=== PATIENT | male | born 1980 | race Caucasian/White ===

== ENCOUNTER 2023-03-15 08:48 | Inpatient (IN) | payer MEDICARE, MEDICAID ==
[~2023-03-15] VITALS: Ht 172.7 cm; Wt 47.6 kg
[~2023-03-15 08:48] MED LIST: APIX5TAB MT; ASCO500C18 MT; CHOL500010; DOCU50LI25 PO; FERR325T6 MT; GABA-529 PO; METH-773 MT; MOM MT; TRAM50TA3 PO; ZINC220C2 MT
[2023-03-15 10:22] LABS: BASOPHILS % 0.5 % (0.0-2.0); HEMATOCRIT. 44.6 % (42.0-52.0); HEMOGLOBIN. 14.7 g/dL (14.0-18.0); LYMPHOCYTES % 21.3 % (20.0-50.0); MEAN CORPUSCULAR HEMOGLOBIN 29.9 pg (28.0-32.0); MEAN CORPUSCULAR HGB CONC 32.9 g/dL (31.0-37.0); MEAN CORPUSCULAR VOLUME 90.8 fL (80.0-94.0); MEAN PLATELET VOLUME 9.5 fl (7.4-10.4); MONOCYTES % 8.2 % (2.0-8.0); PLATELET 201 x1000/uL (130-400); RED BLOOD CELL COUNT 4.91 mill/uL (4.7-6.1); RED CELL DISTRIBUTION WIDTH 15.7 % (11.6-14.6); WHITE BLOOD COUNT 4.6 x1000/uL (4.5-11.0)
[2023-03-15 10:37] LABS: CHLORIDE 99 mEq/L (98-107); INDEX HEMOLYSI 1 (1-3); INDEX ICTERIC 1 (1-4); INDEX LIPEMIC 1 (1-3); POTASSIUM 3.7 mEq/L (3.5-5.1); SODIUM 136 mEq/L (136-145)
[2023-03-15 10:48] LABS: ALANINE AMINOTRANSFERASE 34 IU/L (13-61); ALBUMIN 3.1 g/dL (3.4-5.0); ASPARTATE AMINOTRANSFERASE 29 IU/L (15-37); BILIRUBIN TOTAL 0.8 mg/dL (0.1-1.0); CALCIUM 9.5 mg/dL (8.5-10.1); CARBON DIOXIDE 32 mEq/L (21-32); CREATININE 0.5 mg/dL (0.6-1.3); GLUCOSE 81 mg/dL (70-105); PROTEIN TOTAL 8.1 g/dL (6.0-8.3); UREA NITROGEN BLOOD 18 mg/dL (7-21)
[2023-03-15] MEDS ORDERED: IPRATROPIUM/ALBUTEROL 0.5-3(2.5)MG/3ML NEB HHN PRN (13:15)
[2023-03-15] MEDS ORDERED: HYDROCODONE/ACETAMINOPHEN 5/325MG TABLET PO PRN (13:15)
[2023-03-15] MEDS ORDERED: DOCUSATE SODIUM 100MG CAPSULE PO PRN (13:15)
[2023-03-15] MEDS ORDERED: CLONIDINE 0.1MG TABLET PO PRN (13:15)
[2023-03-15] MEDS ORDERED: ACETAMINOPHEN 325MG TABLET PO PRN ×2 (13:15)
[2023-03-15] MEDS ORDERED: LORAZEPAM 0.5MG TABLET PO PRN (13:15)
[2023-03-15] MEDS ORDERED: NALOXONE HCL 0.4MG/ML VIAL IV PRN (14:15)
[2023-03-15 16:00] VITALS: BP 110/75; PULSE 50; RESP 16; TEMP 98
[2023-03-15 17:39] VITALS: BP 110/75; PULSE 50; RESP 16; TEMP 97.8
[2023-03-15 20:53] VITALS: PULSE 52; RESP 16
[2023-03-16] MEDS: CEFAZOLIN 1000MG PREMIX 50 ML IV SCH ×4 (01:26→19:24)
[2023-03-16 07:03] LABS: BASOPHILS % 0.3 % (0.0-2.0); EOSINOPHILS % 0.8 % (0.0-5.0); HEMATOCRIT. 40.7 % (42.0-52.0); LYMPHOCYTES % 27.3 % (20.0-50.0); MEAN CORPUSCULAR HEMOGLOBIN 31.1 pg (28.0-32.0); MEAN CORPUSCULAR HGB CONC 34.3 g/dL (31.0-37.0); MEAN CORPUSCULAR VOLUME 90.7 fL (80.0-94.0); MEAN PLATELET VOLUME 9.3 fl (7.4-10.4); MONOCYTES % 6.2 % (2.0-8.0); NEUTROPHILS % 65.4 % (40.0-76.0); PLATELET 216 x1000/uL (130-400); RED BLOOD CELL COUNT 4.49 mill/uL (4.7-6.1); RED CELL DISTRIBUTION WIDTH 15.4 % (11.6-14.6); WHITE BLOOD COUNT 4.3 x1000/uL (4.5-11.0)
[2023-03-16 08:00] VITALS: BP 115/55; PULSE 42; RESP 16; TEMP 97.7
[2023-03-16 08:06] LABS: CHLORIDE 102 mEq/L (98-107); INDEX HEMOLYSI 1 (1-3); INDEX ICTERIC 1 (1-4); INDEX LIPEMIC 1 (1-3); POTASSIUM 3.9 mEq/L (3.5-5.1); SODIUM 137 mEq/L (136-145)
[2023-03-16 08:12] LABS: CALCIUM 8.7 mg/dL (8.5-10.1); CARBON DIOXIDE 31 mEq/L (21-32); CREATININE 0.5 mg/dL (0.6-1.3); GLUCOSE 100 mg/dL (70-105); UREA NITROGEN BLOOD 19 mg/dL (7-21)
[2023-03-16] MEDS ORDERED: BISACODYL 5MG TABLET PO NR (09:45)
[2023-03-16] MEDS ORDERED: METOCLOPRAMIDE HCL 10MG/2ML VIAL IV NR (09:45)
[2023-03-16] MEDS: SORBITOL 70% SOLN 30ML PO NR ×2 (12:29→12:30)
[2023-03-16 12:30] VITALS: BP 118/49; PULSE 45; RESP 17; TEMP 96.8
[2023-03-16 16:00] VITALS: BP 135/85; PULSE 52; RESP 22; TEMP 97
[2023-03-16 20:00] VITALS: BP 143/86; PULSE 69; RESP 18; TEMP 97.1
[2023-03-16] MEDS: ONDANSETRON HCL 4MG/2ML INJ IV PRN (23:41)
[2023-03-17] VITALS: BP 139/100; PULSE 97; RESP 16; TEMP 96.9
[2023-03-17] MEDS: DEXT 5%/0.9% NACL 1,000 ML IV SCH (00:32)
[2023-03-17] MEDS: CEFAZOLIN 1000MG PREMIX 50 ML IV SCH ×3 (01:57→17:10)
[2023-03-17 04:00] VITALS: BP 131/90; PULSE 88; RESP 24; TEMP 97.3
[2023-03-17 08:00] VITALS: BP 118/84; PULSE 79; RESP 18; TEMP 97
[2023-03-17 12:00] VITALS: BP 114/78; PULSE 73; RESP 18; TEMP 98.6
[2023-03-17] MEDS ORDERED: MENTHOL/LANOLIN/CALAMINE/ZN OX OINT 71GM TOP PRN (12:00)
[2023-03-17 16:00] VITALS: BP 116/79; PULSE 68; RESP 18; TEMP 98.5
[2023-03-17] MEDS ORDERED: LORAZEPAM 2MG/ML CPJ IV PRN (19:00)
[2023-03-17] MEDS ORDERED: BISACODYL 10MG SUPP PR NR (19:45)
[2023-03-17 20:00] VITALS: BP 129/88; PULSE 68; RESP 17; TEMP 96.6
[2023-03-17] MEDS: LACTULOSE 20G/30ML UDC PO NR (20:17)
[2023-03-17 22:03] LABS: BASOPHILS % 0.3 % (0.0-2.0); EOSINOPHILS % 0.1 % (0.0-5.0); HEMATOCRIT. 38.3 % (42.0-52.0); HEMOGLOBIN. 13.1 g/dL (14.0-18.0); LYMPHOCYTES % 12.6 % (20.0-50.0); MEAN CORPUSCULAR HEMOGLOBIN 30.7 pg (28.0-32.0); MEAN CORPUSCULAR HGB CONC 34.1 g/dL (31.0-37.0); MEAN CORPUSCULAR VOLUME 89.9 fL (80.0-94.0); MEAN PLATELET VOLUME 8.9 fl (7.4-10.4); MONOCYTES % 7.6 % (2.0-8.0); NEUTROPHILS % 79.4 % (40.0-76.0); PLATELET 227 x1000/uL (130-400); RED BLOOD CELL COUNT 4.26 mill/uL (4.7-6.1); WHITE BLOOD COUNT 9.9 x1000/uL (4.5-11.0)
[2023-03-17 22:07] LABS: INR 1.1; PROTHROMBIN TIME 11.9 sec (9.6-11.0)
[2023-03-17 22:29] LABS: CHLORIDE 106 mEq/L (98-107); INDEX HEMOLYSI 1 (1-3); INDEX ICTERIC 1 (1-4); INDEX LIPEMIC 1 (1-3); POTASSIUM 3.7 mEq/L (3.5-5.1); SODIUM 140 mEq/L (136-145)
[2023-03-17 22:30] LABS: CALCIUM 9.3 mg/dL (8.5-10.1)
[2023-03-17 22:35] LABS: CARBON DIOXIDE 31 mEq/L (21-32); CREATININE 0.5 mg/dL (0.6-1.3); GLUCOSE 86 mg/dL (70-105); UREA NITROGEN BLOOD 15 mg/dL (7-21)
[2023-03-17] MEDS: ONDANSETRON HCL 4MG/2ML INJ IV PRN (22:48)
[2023-03-18] VITALS: BP 135/66; PULSE 110; RESP 20; TEMP 97.8
[2023-03-18] MEDS: METOCLOPRAMIDE HCL 10MG/2ML VIAL IV SCH ×4 (00:04→19:06)
[2023-03-18] MEDS: DEXT 5%/0.9% NACL 1,000 ML IV SCH ×2 (00:18→19:06)
[2023-03-18] MEDS: CEFAZOLIN 1000MG PREMIX 50 ML IV SCH ×3 (01:24→19:06)
[2023-03-18 04:00] VITALS: BP 125/89; PULSE 67; RESP 18; TEMP 98.6
[2023-03-18 06:26] LABS: BASOPHILS % 0.2 % (0.0-2.0); HEMATOCRIT. 33.4 % (42.0-52.0); HEMOGLOBIN. 11.5 g/dL (14.0-18.0); LYMPHOCYTES % 11.8 % (20.0-50.0); MEAN CORPUSCULAR HEMOGLOBIN 31.1 pg (28.0-32.0); MEAN CORPUSCULAR HGB CONC 34.4 g/dL (31.0-37.0); MEAN CORPUSCULAR VOLUME 90.3 fL (80.0-94.0); MEAN PLATELET VOLUME 9.5 fl (7.4-10.4); MONOCYTES % 6.1 % (2.0-8.0); NEUTROPHILS % 81.9 % (40.0-76.0); PLATELET 210 x1000/uL (130-400); RED CELL DISTRIBUTION WIDTH 15.4 % (11.6-14.6); WHITE BLOOD COUNT 8.4 x1000/uL (4.5-11.0)
[2023-03-18 07:39] LABS: CHLORIDE 108 mEq/L (98-107); INDEX HEMOLYSI 1 (1-3); INDEX ICTERIC 1 (1-4); INDEX LIPEMIC 1 (1-3); POTASSIUM 3.4 mEq/L (3.5-5.1); SODIUM 139 mEq/L (136-145)
[2023-03-18 07:48] LABS: CALCIUM 8.7 mg/dL (8.5-10.1); CARBON DIOXIDE 27 mEq/L (21-32); CREATININE 0.5 mg/dL (0.6-1.3); UREA NITROGEN BLOOD 15 mg/dL (7-21)
[2023-03-18 08:00] VITALS: BP 127/84; PULSE 78; RESP 20; TEMP 97.7
[2023-03-18 09:21] LABS: GLUCOSE 100 mg/dL (70-105)
[2023-03-18] MEDS ORDERED: LACTULOSE 20G/30ML UDC GT NR (11:45)
[2023-03-18 12:00] VITALS: BP 111/74; PULSE 58; RESP 18; TEMP 97.5
[2023-03-18 16:00] VITALS: BP_SYST 111; BP_SYST 113; BP_DIAS 71; BP_DIAS 72; PULSE 57; RESP 18; TEMP 98.1
[2023-03-18] MEDS ORDERED: POTASSIUM CHLORIDE 20MEQ TABLET SR PO NR (17:00)
[2023-03-18] MEDS: QUETIAPINE FUMARATE 50MG TABLET PO SCH (19:07)
[2023-03-18] MEDS: LACTULOSE 20G/30ML UDC PO NR (19:09)
[2023-03-18 20:00] VITALS: BP 114/80; PULSE 73; RESP 16; TEMP 97.1
[2023-03-19] VITALS: BP 122/76; PULSE 74; RESP 16; TEMP 97.2
[2023-03-19] MEDS: METOCLOPRAMIDE HCL 10MG/2ML VIAL IV SCH ×3 (02:27→12:38)
[2023-03-19] MEDS: CEFAZOLIN 1000MG PREMIX 50 ML IV SCH ×2 (02:27→09:55)
[2023-03-19 04:00] VITALS: BP 120/76; PULSE 100; RESP 18; TEMP 97.8
[2023-03-19 05:25] LABS: BASOPHILS % 0.5 % (0.0-2.0); EOSINOPHILS % 0.8 % (0.0-5.0); HEMATOCRIT. 33.2 % (42.0-52.0); HEMOGLOBIN. 11.2 g/dL (14.0-18.0); LYMPHOCYTES % 32.9 % (20.0-50.0); MEAN CORPUSCULAR HEMOGLOBIN 30.7 pg (28.0-32.0); MEAN CORPUSCULAR HGB CONC 33.6 g/dL (31.0-37.0); MEAN CORPUSCULAR VOLUME 91.2 fL (80.0-94.0); MEAN PLATELET VOLUME 9.1 fl (7.4-10.4); MONOCYTES % 9.2 % (2.0-8.0); NEUTROPHILS % 56.6 % (40.0-76.0); PLATELET 187 x1000/uL (130-400); RED BLOOD CELL COUNT 3.63 mill/uL (4.7-6.1); RED CELL DISTRIBUTION WIDTH 15.3 % (11.6-14.6); WHITE BLOOD COUNT 5.2 x1000/uL (4.5-11.0)
[2023-03-19 06:34] LABS: INDEX HEMOLYSI 1 (1-3); INDEX ICTERIC 1 (1-4); INDEX LIPEMIC 1 (1-3)
[2023-03-19 06:44] LABS: CALCIUM 8.6 mg/dL (8.5-10.1); CARBON DIOXIDE 26 mEq/L (21-32); CHLORIDE 109 mEq/L (98-107); CREATININE 0.4 mg/dL (0.6-1.3); GLUCOSE 66 mg/dL (70-105); POTASSIUM 3.5 mEq/L (3.5-5.1); SODIUM 140 mEq/L (136-145); UREA NITROGEN BLOOD 10 mg/dL (7-21)
[2023-03-19 08:00] VITALS: BP 114/78; PULSE 74; RESP 18; TEMP 98.2
[2023-03-19] MEDS: QUETIAPINE FUMARATE 50MG TABLET PO SCH (08:40)
[2023-03-19 12:00] VITALS: BP 117/72; PULSE 51; RESP 18; TEMP 97.5
[2023-03-19 13:41] VITALS: BP 118/72; PULSE 52; TEMP 97.6; O2SAT 99
== END 2023-03-19 14:25 | DRG 394 ==
LOC: ER 08:48 → 6EST 11:13 → 8WST 03-16 15:35
PROVIDERS: ADMIT Internal Medicine; ATTEND Internal Medicine
DX: K94.23 Gastrostomy malfunction (principal); E46 Unspecified protein-calorie malnutrition; L03.115 Cellulitis of right lower limb; G10 Huntington's disease; Z68.1 Body mass index [BMI] 19.9 or less, adult; D50.9 Iron deficiency anemia, unspecified; K59.00 Constipation, unspecified; R13.12 Dysphagia, oropharyngeal phase; J43.9 Emphysema, unspecified; L89.891 Pressure ulcer of other site, stage 1; M19.90 Unspecified osteoarthritis, unspecified site; Y83.8 Other surgical procedures as the cause of abnormal reaction of the patient, or of later complication, without mention of misadventure at the time of the procedure; R00.1 Bradycardia, unspecified; I25.10 Atherosclerotic heart disease of native coronary artery without angina pectoris; Z74.01 Bed confinement status; Z78.1 Physical restraint status
CPT/HCPCS: 36415; 71045; 74018; 76705; 80048; 80053; 82962; 85025; 93005; 99285; A6261; J0690; J2060; J2405; J2765